=== PATIENT | male | born 1950 | race Caucasian/White ===

== ENCOUNTER 2020-05-02 09:22 | Emergency (ER) | payer OTHER ==
[~2020-05-02] VITALS: Ht 172.7 cm; Wt 97.5 kg
[~2020-05-02 09:22] MED LIST: ASA 81 MG; Z.0.BENICAR20 MG PO; Z.0.CRESTOR10 MG PO; Z.0.JANUMET XR 50-1; Z.0.PLAVIX75 MG PO
[2020-05-02] MEDS ORDERED: OXYMETAZOLINE HCL 0.05% NAS 1 SPRAY BTL STA (09:26)
[2020-05-02] MEDS ORDERED: ONDANSETRON HCL 4 MG ORAL DISINTEGRATING TAB PO STA (09:56)
[2020-05-02] MEDS ORDERED: MORPHINE SULFATE INJ 4 MG/ML INJ 1ML IM PRN (10:00)
== END 2020-05-02 12:00 | disposition home or self-care (01) ==
LOC: ER 09:35
DX: R04.0 Epistaxis (principal); S02.2XXA Fracture of nasal bones, initial encounter for closed fracture; W18.30XA Fall on same level, unspecified, initial encounter; I25.10 Atherosclerotic heart disease of native coronary artery without angina pectoris; I10 Essential (primary) hypertension; E78.5 Hyperlipidemia, unspecified; Z79.01 Long term (current) use of anticoagulants
CPT/HCPCS: 70486; 99283; J2270; Q0162

== ENCOUNTER → 2024-12-15 | Outpatient (REF) | payer MEDICARE, OTHER | LOC: RAD 12:19 | PROVIDERS: ATTEND Internal Medicine | DX: J42 Unspecified chronic bronchitis (principal) | CPT/HCPCS: 71046 ==